=== PATIENT | female | born 1990 | race Caucasian/White ===

== ENCOUNTER 2016-10-03 11:52 | Emergency (ER) | payer SELFPAY ==
[2016-10-03 12:41] LABS: ABSOLUTE NEUTROPHIL COUNT 4.9 K/mm3 (1.8-7.7); BASO % 0.4 % (0.2-1.0); EOS # 0.2 (0.0-0.5); HEMATOCRIT 36.6 % (37.0-47.0); HEMOGLOBIN 11.2 gm/l (12.0-16.0); IMM NEUT% 0.2 % (0-1); LYMPH # 4.4 (1.0-4.8); MEAN CELL VOLUME 78.5 fl (81.0-99.0); MEAN CORPUSCULAR HGB CONC 30.6 g/dl (33.0-37.0); MEAN PLATELET VOLUME 9.3 fl (7.4-10.4); MONO # 0.5 (0.0-0.8); MONO % 4.7 % (4-12); NEUT % 48.7 % (43-75); PLATELET COUNT 606 K/mm3 (130-400); RED CELL DISTRIBUTION WIDTH 15.3 % (11.5-14.5)
[2016-10-03 12:58] LABS: CALCIUM 9.1 mg/dL (8.6-10.3)
[2016-10-03 13:03] LABS: TROPONIN I < 0.01 ng/ml (0.0-0.06)
[2016-10-03 13:07] LABS: CKMB ISOENZYME 1.3 ng/ml (0.6-6.3)
--- NOTE | 2016-10-03 13:16 | RAD ---
Name: MATT ELENA Exam: Two-view chest Comparison: None Clinical history: Chest pain and shortness of breath Findings: 2 views of the chest are submitted. The heart mediastinum and hilar structures are within normal limits. There is no failure, infiltrate, pleural effusion or pneumothorax. Regional skeleton is within normal limits. Impression: No acute cardiopulmonary process
[2016-10-03 13:26] LABS: URINE BILIRUBIN NEGATIVE (NEGATIVE); URINE BLOOD 4+ (NEGATIVE); URINE GLUCOSE (UA) NEGATIVE (NEGATIVE); URINE LEUKOCYTE ESTERASE TRACE (NEGATIVE); URINE NITRITE NEGATIVE (NEGATIVE); URINE PROTEIN NEGATIVE (NEGATIVE); URINE UROBILINOGEN NORMAL (0-1 mg/dl)
[2016-10-03 13:27] LABS: URINE APPEARANCE CLEAR; URINE COLOR YELLOW
[2016-10-03 13:39] LABS: URINE BACTERIA 1+; URINE RBC 40-50 /hpf
[2016-10-03] MEDS ORDERED: MAALOX/LIDO2%VISC/SIMETHICONE 40 ML BOT ONE (14:06)
[2016-10-03] MEDS ORDERED: ACETAMINOPHEN 325 MG TABLET ONE (14:06)
[2016-10-03] MEDS ORDERED: IBUPROFEN 600 MG TABLET ONE (14:06)
[2016-10-03] MEDS ORDERED: FAMOTIDINE 20 MG TABLET ONE (14:07)
[2016-10-03] MEDS ORDERED: SUCRALFATE 1 G/10 ML DOSE ONE (14:07)
== END 2016-10-03 14:16 | disposition home or self-care (01) ==
LOC: ED 11:52
DX: R07.9 Chest pain, unspecified (principal); J45.909 Unspecified asthma, uncomplicated
CPT/HCPCS: 85379; 84703; 85025; 82553; 87086; 80048; 85651; 84484; 81001; 71020; 99284 ×2; 93005; A9270 ×5

== ENCOUNTER 2016-10-04 15:48 | Emergency (ER) | payer SELFPAY ==
[2016-10-04] MEDS ORDERED: IBUPROFEN 600 MG TABLET ONE (18:03)
[2016-10-04] MEDS ORDERED: ACETAMINOPHEN 325 MG TABLET ONE (18:04)
== END 2016-10-04 18:26 | disposition home or self-care (01) ==
LOC: ED 15:48
DX: R07.9 Chest pain, unspecified (principal); J45.909 Unspecified asthma, uncomplicated
CPT/HCPCS: 99283 ×2; 93005; A9270 ×2